=== PATIENT | female | born 1975 | race Caucasian/White ===

== ENCOUNTER 2020-04-10 17:02 | Inpatient (IN) | payer OTHER ==
[~2020-04-10] VITALS: Ht 157.5 cm; Wt 98.9 kg
[2020-04-10] MEDS ORDERED: TENORMIN 25 MG25 MG PO (20:45)
[2020-04-10] MEDS ORDERED: LOVASTATIN40 MG PO (20:45)
[2020-04-10] MEDS ORDERED: JANUVIA100 MG PO (20:45)
[2020-04-10] MEDS ORDERED: LEXAPRO TAB 1010 MG PO (20:46)
[2020-04-10] MEDS ORDERED: GLIPIZIDE ER10 MG PO (20:46)
[2020-04-10] MEDS ORDERED: VISTARIL 50 MG50 MG PO (20:47)
[2020-04-10] MEDS ORDERED: PRINIVIL20 MG PO (20:47)
[2020-04-10] MEDS ORDERED: GLUCOPHAGE1000 MG PO (20:48)
[2020-04-11 06:38] LABS: HEMOGLOBIN 11.6 gm/dl (12.3-15.3); RED BLOOD COUNT 4.54 M/UL (4.00-5.10); WHITE BLOOD COUNT 9.1 K/UL (4.5-11.0)
[2020-04-12 06:40] LABS: HEMOGLOBIN 12.8 gm/dl (12.3-15.3); RED BLOOD COUNT 4.93 M/UL (4.00-5.10); WHITE BLOOD COUNT 9.9 K/UL (4.5-11.0)
[2020-04-12 07:20] LABS: BUN/CREATININE RATIO 34 (0-10)
[2020-04-12 13:13] LABS: ANTI-DSDNA ANTIBODIES 1 IU/mL (0-9); SJOGREN'S ANTI-SS-A <0.2 AI (0.0-0.9); SJOGREN'S ANTI-SS-B <0.2 AI (0.0-0.9)
[2020-04-13 05:09] LABS: RPR Reactive (Non Reactive); TREPONEMA PALLIDUM ANTIBODIES Non Reactive (Non Reactive)
[2020-04-13] MEDS ORDERED: CLOPIDOGREL75 MG PO (12:55)
[2020-04-13] MEDS ORDERED: ASPIRIN EC81 MG PO (12:55)
[2020-04-13] MEDS ORDERED: ATORVASTATIN CA20 MG PO (12:55)
--- NOTE | 2020-04-13 14:02 | NUR ---
REPORT CALLED TO [facility] AT THIS TIME. RN RECIEVING REPORT IS KEM. REPORT NUMBER IS [phone].
--- NOTE | 2020-04-13 14:35 | NUR ---
SPOKE WITH [facility] AT THIS TIME ABOUT TRANSPORTATION OF PATIENT TO [facility]. THEY STATED THAT THEY WOULD TAKE THE PATIENT AND WOULD HAVE A TRUCK HERE IN [facility] AN HOUR.
[2020-04-14 14:09] LABS: PROTEIN C-FUNCTIONAL 128 % (73-180); PROTEIN S-FUNCTIONAL 59 % (63-140)
== END 2020-04-13 15:41 | disposition short-term general hospital (02) | DRG 65 ==
LOC: MED SURG 4 20:32
PROVIDERS: Internal Medicine; Psychiatry & Neurology Neurology; ADMIT Internal Medicine Infectious Disease
PROC: B24BZZZ Ultrasonography of Heart with Aorta (ICD-10-PCS; principal; 2020-04-11)
DX: I63.511 Cerebral infarction due to unspecified occlusion or stenosis of right middle cerebral artery (principal); Z68.41 Body mass index [BMI] 40.0-44.9, adult; G81.94 Hemiplegia, unspecified affecting left nondominant side; R13.10 Dysphagia, unspecified; R29.810 Facial weakness; I10 Essential (primary) hypertension; E11.9 Type 2 diabetes mellitus without complications; E78.5 Hyperlipidemia, unspecified; F41.9 Anxiety disorder, unspecified; Z20.822 Contact with and (suspected) exposure to COVID-19; E66.01 Morbid (severe) obesity due to excess calories; Z79.82 Long term (current) use of aspirin; Z82.3 Family history of stroke; Z79.4 Long term (current) use of insulin; Z79.899 Other long term (current) drug therapy
CPT/HCPCS: ECHO; 36415; 70450; 70496; 70498; 70551; 80053; 80061; 82962; 83036; 84439; 84443; 85025; 85300; 85652; 86225; 86235; 86592; 86593; 86780; 92507; 92526; 92610; 93005; 93306; 97110-GP-CQ; 97112; 97162; 97166; 97530-GP-CQ; J1650; Q9967